=== PATIENT | female | born 1955 | race Caucasian/White ===

== ENCOUNTER 2025-02-28 18:44 | Emergency (ER) | payer BC, MEDICAID ==
[~2025-02-28] VITALS: Ht 165.1 cm; Wt 67.0 kg
[2025-02-28 18:47] VITALS: O2SAT 100
[2025-02-28] MEDS ORDERED: LIDO-53 TP (20:25)
[2025-02-28] MEDS ORDERED: IBUP-2028 MT (20:25)
[2025-02-28] MEDS: IBUPROFEN 400MG TABLET PO ONE (21:33)
[2025-02-28] MEDS: LIDOCAINE 5% PATCH TOP SCH (21:43)
[2025-02-28 21:55] VITALS: BP 148/78; PULSE 77; RESP 16; TEMP 36.8; O2SAT 100
== END 2025-02-28 21:55 | disposition home or self-care (01) ==
LOC: ER 18:44 → EDBD 18:44 → ER 21:55
DX: M25.561 Pain in right knee (principal); M54.2 Cervicalgia
CPT/HCPCS: 73560; 73590; 99284